=== PATIENT | male | born 1985 | race Caucasian/White ===

== ENCOUNTER 2016-11-07 13:10 | Emergency (ER) | payer OTHER ==
[~2016-11-07] VITALS: Ht 177.8 cm; Wt 74.8 kg
[~2016-11-07 13:10] MED LIST: ATIVAN1 MG PO; CYCLOBENZAPRINE10 M1 PO; FLEXERIL10 MG PO; HYDROXYZINE HCL25 M2 PO; MEDROL4 M1 PO; MEDROL4 M2 PO; MOBIC 15MG15 MG PO; MOBIC15 M1 PO; NAPROSYN 500 M500 MG PO; NORFLEX100 MG PO; PERCOCET 5-3251 EACH PO; PREDNISONE10 MG PO; VISTARIL25 M1 PO
--- NOTE | 2016-11-07 13:47 | ED NECK/BACK PAIN COMPLAINT ---
History of Present Illness General Chief Complaint: Low Back Pain/Injury Stated Complaint: LOW BACK PAIN Source: patient Exam Limitations: no limitations Vital Signs & Intake/Output Vital Signs & Intake/Output Vital Signs Date Time Temp Pulse Resp B/P B/P Pulse O2 O2 Flow FiO2 Mean Ox Delivery Rate 11/07 1439 98.7 90 20 140/80 98 Room Air 11/07 1312 98.4 92 14 144/89 96 Room Air Allergies Coded Allergies: methylphenidate (Intermediate, NERVOUS TIKS 09/03/15) Reconcile Medications Oxycodone HCl (Oxaydo) 7.5 MG TABLET.ORL 1 TAB PO TID PAIN Triage Note: 31 Y/O MALE C/O LOW BACK PAIN; STATES HE RECENTLY HAD SPINAL FUSION 08/02/[address] DE LEÓN AND WAS NOT CLEARED TO RETURN TO WORK UNTIL JANUARY. 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 TOOK 5MG OXYCODONE 4 HOURS AGO WITH NO RELIEF; STATES HE CANNOT TAKE ANY ANTI-INFLAMMATORIES BECAUSE "THE FUSION WONT HEAL PROPERLY". STATES HE IS OUT OF THE OXYCODONE AFTER TAKING TODAYS DOSE. UNABLE TO GET APPT WITH SURGEON THIS WEEK. Triage Nurses Notes Reviewed? yes Onset: Abrupt Duration: day(s):, constant, gone now Timing: recent history Quality/Severity: moderate, severe Radiation: none Loss of Consciousness: no loss of consciousness HPI: 31-year-old male that comes into emergency room with complaints of low back pain. Patient reports that he had a low back fusion done back in August of this year. He was supposed to be off duty from work until January but reports that he ran out of money. 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 He reports that he did some lifting last couple days and has been feeling pain in his back. Patient ran out of his oxycodone. Patient also reports that he has a small bump over the incision in his abdomen from the surgery of his back that he wanted to be evaluated. Denies any fever chills vomiting. Denies any other system symptoms. (PAT DUFFY) Past History Travel History Traveled to [place] past 21 day No Medical History Any Pertinent Medical History? see below for history Neurological: NONE EENT: NONE Cardiovascular: NONE Respiratory: NONE Gastrointestinal: NONE Hepatic: NONE Renal: NONE Musculoskeletal: disk herniation, SLIPPED DISK Psychiatric: ADD Endocrine: NONE Surgical History Surgical History: N Psychosocial History What is your primary language Wolof Tobacco Use: Current Daily Use Daily Tobacco Use Amount/Type: => 5 Cigarettes daily Family History Hx Contributory? No (PAT DUFFY) Review of Systems Review of Systems Constitutional: Reports: no symptoms. Eyes: Reports: no symptoms. Ears, Nose, Throat, Mouth: Reports: no symptoms. Respiratory: Reports: no symptoms. Cardiovascular: Reports: no symptoms. Gastrointestinal/Abdominal: Reports: no symptoms. Musculoskeletal: Reports: see HPI. Skin: Reports: no symptoms. Neurological/Psychological: Reports: no symptoms. All Other Systems: Reviewed and Negative (PAT DUFFY) Physical Exam Physical Exam General Appearance: well developed/nourished, mild distress Head: atraumatic Eyes: Bilateral: PERRL, EOMI. Ears, Nose, Throat, Mouth: hearing grossly normal Neck: normal inspection, full range of motion Respiratory: normal breath sounds Cardiovascular: regular rate/rhythm Gastrointestinal: soft, non-tender Back: normal inspection Extremities: normal range of motion Motor: Deficit L4 Right: No Deficit L4 Left: No Deficit L5 Right: No Deficit L5 Left: No Deficit S1 Right: No Deficit S1 Right: No Neurologic/Psych: awake, alert, oriented x 3, normal mood/affect Skin: intact, normal color, warm/dry (PAT DUFFY) Progress Differential Diagnosis: herniated disc, myofascial strain, pyelo/UTI, sciatica, spinal cord inj, thoracic outlet syn, T/L spine injury, ureterolithiasis Plan of Care: Orders Procedure Date/time Status XRY-LUMBOSACRAL SPINE AP & LAT 11/07 1337 Active Diagnostic Imaging: Viewed by Me: Radiology Read. Discussed w/RAD: Radiology Read. Radiology Impression: EXAM TYPE: RAD - XRY-LUMBOSACRAL SPINE AP & LAT EXAMINATION: XR LUMBOSACRAL SPINE CLINICAL INFORMATION: Lower back pain, status post fusion. COMPARISON: None TECHNIQUE: AP and lateral views of the lumbosacral spine were obtained. FINDINGS: There is straightening of the normal lumbar lordosis. There are post instrumented fusion changes from an anterior and posterior approach with an intervertebral disc spacer and anterior stabilization hardware at the L4/L5 level. In addition, there are bilateral pedicle screws with vertical stabilization hardware posteriorly at the L4 and L5 level. There is no evidence of immediate hardware complication. The hardware appears to be in satisfactory position. There is grade 1 anterolisthesis of L5 on S1. IMPRESSION: Postoperative changes as noted. DICTATED BY: ANNABELLE WYLIE MD DATE/TIME DICTATED:11/07/161426 PLATE STRAIGHTENER:GERRY DATE/TIME TRANSCRIBED:1426 Comments: 11/07/2016 2:47:28 PM Hardware intact. Pain consistent more with muscular pain. Small bump on abdomen could be a incisional hernia versus scar tissue. There is no obvious signs of herniation anything that feels incarcerated or strangulate on exam. Patient referred to general surgeon for further evaluation. It was not the patient's primary complaint. Has been there since the surgery. It did not happen while doing lifting yesterday. Denies any other system symptoms. No motor weakness. Patient will comply and follow up with general surgeon as well as his orthopedic surgeon. (MIKI HAMPTON,PAT) Departure Departure Disposition: HOME OR SELF CARE Condition: Stable Clinical Impression Primary Impression: Low back strain Secondary Impressions: Incisional hernia, Scar tissue Referrals: JONATHAN RODRIGUES,CARLOS Alexander (PCP/Family) DOMINIC RODRIGUES,BRI Mota Additional Instructions: Follow-up with your orthopedic surgeon. Take Percocet for pain. Follow-up with general surgeon for possible incisional hernia on abdomen. It could potentially also be scar tissue. Return if any concerns worsening symptoms. Please go over all results of today's visit with your primary care doctor. Contact your primary care doctor to let them know you were here in the emergency room. There may be nonspecific findings which may not be related to your visit today here in the emergency room but may require further evaluation and chronic monitoring by your primary care doctor. If you had a laceration today the chance of foreign body always remains. You should follow-up with your primary care doctor for recheck in 3-5 days for a wound check. If you had an x-ray done there is a chance that a fracture could have been missed on initial read and you should follow-up with your primary care doctor for repeat x-rays if symptoms persist. If your blood pressure was elevated here in the emergency room please have rechecked by her primary care doctor within the next 48 hours by your primary care doctor. If you were prescribed a narcotic here in the emergency room or any type of controlled substances you're not allowed to drive while taking this medication or operate any type of heavy machinery. Narcotics can make you feel lightheaded dizziness nausea and can cause constipation. 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 Thank you for choosing [facility] emergency room. Please return to the emergency room immediately if you have any other concerns worsening of symptoms. Departure Forms: Customer Survey General Discharge Information Prescriptions: Current Visit Scripts Oxycodone HCl (Oxaydo) 1 TAB PO TID #10 MG (PAT DUFFY) PA/CHORUS MASTER Co-Sign Statement Statement: ED Attending supervision documentation- I saw and evaluated the patient. I have also reviewed all the pertinent lab results and diagnostic results. I agree with the findings and the plan of care as documented in the PA's/CHORUS MASTER's documentation. x I have reviewed the ED Record and agree with the PA's/CHORUS MASTER's documentation. [] Additions or exceptions (if any) to the PAs/CHORUS MASTER's note and plan are summarized below: [] (JUVENAL RODRIGUES,ISAIAH)
--- NOTE | 2016-11-07 14:33 | RADIOLOGY REPORT ---
EXAMINATION: XR LUMBOSACRAL SPINE CLINICAL INFORMATION: Lower back pain, status post fusion. COMPARISON: None TECHNIQUE: AP and lateral views of the lumbosacral spine were obtained. FINDINGS: There is straightening of the normal lumbar lordosis. There are post instrumented fusion changes from an anterior and posterior approach with an intervertebral disc spacer and anterior stabilization hardware at the L4/L5 level. In addition, there are bilateral pedicle screws with vertical stabilization hardware posteriorly at the L4 and L5 level. There is no evidence of immediate hardware complication. The hardware appears to be in satisfactory position. There is grade 1 anterolisthesis of L5 on S1. IMPRESSION: Postoperative changes as noted.
[2016-11-07] MEDS ORDERED: OXAYDO7.5 MG PO (14:37)
[2016-11-07 14:39] VITALS: BP 140/80
== END 2016-11-07 14:42 ==
LOC: ERH 13:10
DX: S39.012A Strain of muscle, fascia and tendon of lower back, initial encounter (principal); K43.2 Incisional hernia without obstruction or gangrene; L91.0 Hypertrophic scar; X50.0XXA Overexertion from strenuous movement or load, initial encounter; Y93.H2 Activity, gardening and landscaping; Y92.9 Unspecified place or not applicable
CPT/HCPCS: 72100